=== PATIENT | female | born 1955 | race Caucasian/White ===

== ENCOUNTER 2017-04-10 17:11 | Emergency (ER) | payer BC ==
[~2017-04-10] VITALS: Ht 157.5 cm; Wt 67.7 kg
[~2017-04-10 17:11] MED LIST: ALBUTEROL SUL0.083 % IN; ALBUTEROL0.083 % IN; ALBUTEROL0.5 % IN; ALLEGRA-D 1212 HOUR PO; ALLEGRA-D 2424 HOUR PO; AMLODIPINE5 MG PO; ASPIRIN ADULT L81 M2; ATENOLOL100 MG PO; ATENOLOL25 MG PO; ATENOLOL50 MG PO; AUGMENTIN500TAB PO; AUGMENTIN875TAB PO; BRILINTA90 MG PO; CEPHALEXIN500 MG PO; CIPRO250 MG PO; CIPRO500 MG OR; EC-NAPROSYN500 MG PO; FENTANYL25 MCG/HR TD; FLONASE NASAL50 MCG; FLOVENT 44 MCG44 MCG IN; FLUARIX QUADRIV1 IN1 IM; FLUARIX QUADRIV1 INJ IM; FOSAMAX70 MG PO; HYDRALAZINE25 MG PO; LEVAQUIN750 MG PO; LIPITOR10 MG PO; LISINOPRIL10 MG PO; LORTAB 1010 MG PO; LORTAB 5 OR; LORTAB 5 PO; LORTAB 7.57.5 MG PO; MEDDOSEPAK PO; MIRAPEX0.5 MG PO; NITRO-DUR0.4 MG/HR TD; OXYGEN IN; PERCOCET 5/325M1 TAB PO; PLAVIX75 MG PO; PREDNISONE10 MG OR; PREDNISONE10 MG PO; PREDNISONE20 MG PO; PROTONIX40 M2 PO; PROVENTIL HFA INH; ROBITUSSIN AC10 ML PO; RYTHMOL150 MG OR; SINGULAIR PO; SINGULAIR10 MG OR; SINGULAIR10 MG PO; SOMA350 MG OR; SOMA350 MG PO; SYMBICORT1 AE1 IN; TENORMIN OR; TIZANIDINE2 MG PO; VENTOLIN HFA IN; VENTOLIN HFA INH; XANAX0.5 MG OR; XANAX0.5 MG PO; ZITHROMAX250 MG PO; ZPAK PO
[2017-04-10] MEDS ORDERED: ZYRTEC10 M5 PO (17:31)
[2017-04-10] MEDS ORDERED: BRILINTA90 MG PO (17:32)
[2017-04-10] MEDS ORDERED: PREDNISONE10 MG PO (17:33)
[2017-04-10 18:11] LABS: HEMOGLOBIN 11.7 g/dl (12.0-16.0); IMMATURE GRANULOCYTES 0.4 % (0.0-1.0); MEAN CELL VOLUME 86.6 fL CALC (80.0-100.0); MEAN CORPUSCULAR HGB 26.7 pG CALC (26.0-32.0); MEAN CORPUSCULAR HGB CONC 30.8 g/L CALC (32.0-36.0); NEUT# 6.55 thou/uL (2.00-7.15); RED BLOOD COUNT 4.39 mill/uL (4.20-5.60); RED CELL DISTRI WIDTH 12.9 % (11.5-15.5)
[2017-04-10 18:34] LABS: ALBUMIN 3.8 g/dL (3.2-5.0); ALKALINE PHOSPHATASE 87 u/l (38-126); ANION GAP 14 (6-22 (CALC)); BILIRUBIN, TOTAL 0.3 mg/dL (0.0-1.4); BUN 11 mg/dL (8-23); BUN/CREATININE RATIO 19 (12-20 (CALC)); CALCIUM 9.4 mg/dL (8.4-10.2); CARBON DIOXIDE 34 mmol/l (22-30); CHLORIDE 95 mmol/l (95-108); CREATININE 0.6 mg/dL (0.5-1.0); GFR > 60 ML/MIN (>=60 (CALC)); GFR FOR AFR.AMER. > 60 ML/MIN (>=60 (CALC)); GLUCOSE 128 mg/dL (82-115); POTASSIUM 3.2 mmol/l (3.5-5.1); SGOT/AST 19 u/l (9-36); SGPT/ALT 22 u/l (11-66); SODIUM 140 mmol/l (137-146); TOTAL PROTEIN 7.8 g/dL (6.3-8.2)
[2017-04-10 18:53] LABS: MYOGLOBIN 37 ng/mL (0 - 62)
[2017-04-10] MEDS ORDERED: ZPAK PO (19:21)
[2017-04-10] MEDS ORDERED: MEDDOSEPAK PO (19:21)
[2017-04-10 19:29] LABS: INFLUENZA A NONE DETECTED (NONE DETECT); INFLUENZA B NONE DETECTED (NONE DETECT)
[2017-04-10 19:55] VITALS: BP 173/82
== END 2017-04-10 19:56 | disposition home or self-care (01) | DRG 192 ==
LOC: ED 17:11
PROVIDERS: Emergency Medicine
DX: J44.1 Chronic obstructive pulmonary disease with (acute) exacerbation (principal); R06.02 Shortness of breath; R05 Cough

== ENCOUNTER 2017-05-19 11:10 | Observation (INO) | payer BC ==
[~2017-05-19] VITALS: Ht 157.5 cm; Wt 65.0 kg
[~2017-05-19 11:10] MED LIST changes: +ZYRTEC10 M5 PO
[2017-05-19 12:00] VITALS: BP 190/84
[2017-05-19 12:34] LABS: HEMATOCRIT 36.5 % (37.0-47.0); HEMOGLOBIN 11.1 g/dl (12.0-16.0); IMMATURE GRANULOCYTES 0.3 % (0.0-1.0); MEAN CELL VOLUME 84.7 fL CALC (80.0-100.0); MEAN CORPUSCULAR HGB 25.8 pG CALC (26.0-32.0); MEAN CORPUSCULAR HGB CONC 30.4 g/L CALC (32.0-36.0); NEUT# 7.62 thou/uL (2.00-7.15); RED BLOOD COUNT 4.31 mill/uL (4.20-5.60); RED CELL DISTRI WIDTH 14.1 % (11.5-15.5)
[2017-05-19 12:48] LABS: ALBUMIN 3.9 g/dL (3.2-5.0); ALKALINE PHOSPHATASE 64 u/l (38-126); ANION GAP 13 (6-22 (CALC)); BILIRUBIN, TOTAL 0.3 mg/dL (0.0-1.4); BUN 13 mg/dL (8-23); BUN/CREATININE RATIO 13 (12-20 (CALC)); CALCIUM 9.2 mg/dL (8.4-10.2); CARBON DIOXIDE 34 mmol/l (22-30); CHLORIDE 99 mmol/l (95-108); GFR 56 ML/MIN (>=60 (CALC)); GFR FOR AFR.AMER. > 60 ML/MIN (>=60 (CALC)); GLUCOSE 112 mg/dL (82-115); POTASSIUM 4.4 mmol/l (3.5-5.1); SGOT/AST 14 u/l (9-36); SGPT/ALT 20 u/l (11-66); SODIUM 141 mmol/l (137-146)
[2017-05-19 13:27] VITALS: BP 152/87
[2017-05-19 15:21] LABS: CHOLESTEROL HDL RATIO 3.6 (<4.4 (CALC))
[2017-05-19 20:00] VITALS: BP 155/89
[2017-05-20] VITALS (8 sets, daily range): BP systolic 110–156; BP diastolic 59–88
[2017-05-20 06:18] LABS: HEMATOCRIT 36.1 % (37.0-47.0); HEMOGLOBIN 10.9 g/dl (12.0-16.0); IMMATURE GRANULOCYTES 0.2 % (0.0-1.0); MEAN CELL VOLUME 86.4 fL CALC (80.0-100.0); MEAN CORPUSCULAR HGB 26.1 pG CALC (26.0-32.0); MEAN CORPUSCULAR HGB CONC 30.2 g/L CALC (32.0-36.0); NEUT# 5.78 thou/uL (2.00-7.15); RED BLOOD COUNT 4.18 mill/uL (4.20-5.60); RED CELL DISTRI WIDTH 14.1 % (11.5-15.5)
[2017-05-20 06:32] LABS: ALKALINE PHOSPHATASE 63 u/l (38-126); ANION GAP 15 (6-22 (CALC)); BILIRUBIN, TOTAL 0.3 mg/dL (0.0-1.4); BUN 15 mg/dL (8-23); BUN/CREATININE RATIO 17 (12-20 (CALC)); CALCIUM 9.1 mg/dL (8.4-10.2); CARBON DIOXIDE 30 mmol/l (22-30); CHLORIDE 99 mmol/l (95-108); CREATININE 0.9 mg/dL (0.5-1.0); GFR > 60 ML/MIN (>=60 (CALC)); GFR FOR AFR.AMER. > 60 ML/MIN (>=60 (CALC)); GLUCOSE 92 mg/dL (82-115); POTASSIUM 4.1 mmol/l (3.5-5.1); SGOT/AST 14 u/l (9-36); SGPT/ALT 22 u/l (11-66); SODIUM 141 mmol/l (137-146)
[2017-05-21] VITALS (8 sets, daily range): BP systolic 110–170; BP diastolic 55–81
[2017-05-21 05:28] LABS: HEMATOCRIT 35.1 % (37.0-47.0); HEMOGLOBIN 10.6 g/dl (12.0-16.0); IMMATURE GRANULOCYTES 0.1 % (0.0-1.0); MEAN CELL VOLUME 85.8 fL CALC (80.0-100.0); MEAN CORPUSCULAR HGB 25.9 pG CALC (26.0-32.0); MEAN CORPUSCULAR HGB CONC 30.2 g/L CALC (32.0-36.0); NEUT# 5.01 thou/uL (2.00-7.15); RED BLOOD COUNT 4.09 mill/uL (4.20-5.60)
[2017-05-21 05:59] LABS: ALBUMIN 3.3 g/dL (3.2-5.0); ALKALINE PHOSPHATASE 53 u/l (38-126); ANION GAP 13 (6-22 (CALC)); BILIRUBIN, TOTAL 0.2 mg/dL (0.0-1.4); BUN 11 mg/dL (8-23); BUN/CREATININE RATIO 16 (12-20 (CALC)); CALCIUM 8.7 mg/dL (8.4-10.2); CARBON DIOXIDE 28 mmol/l (22-30); CHLORIDE 103 mmol/l (95-108); CREATININE 0.7 mg/dL (0.5-1.0); GFR > 60 ML/MIN (>=60 (CALC)); GFR FOR AFR.AMER. > 60 ML/MIN (>=60 (CALC)); GLUCOSE 84 mg/dL (82-115); POTASSIUM 4.1 mmol/l (3.5-5.1); SGOT/AST 13 u/l (9-36); SGPT/ALT 20 u/l (11-66); SODIUM 140 mmol/l (137-146); TOTAL PROTEIN 6.1 g/dL (6.3-8.2)
[2017-05-22 03:23] VITALS: BP 137/79
[2017-05-22 08:25] VITALS: BP 159/68
[2017-05-22 09:44] VITALS: BP 159/68
== END 2017-05-22 09:47 | disposition home or self-care (01) | DRG 543 ==
LOC: ENPENDDIS → ICU 11:10 → MS2 05-21 13:05
PROVIDERS: ADMIT Internal Medicine Geriatric Medicine; ATTEND Internal Medicine Geriatric Medicine
DX: M48.54XA Collapsed vertebra, not elsewhere classified, thoracic region, initial encounter for fracture (principal); J44.1 Chronic obstructive pulmonary disease with (acute) exacerbation; I10 Essential (primary) hypertension; I25.10 Atherosclerotic heart disease of native coronary artery without angina pectoris; K21.9 Gastro-esophageal reflux disease without esophagitis; D64.9 Anemia, unspecified; M47.9 Spondylosis, unspecified; M62.830 Muscle spasm of back; Z95.5 Presence of coronary angioplasty implant and graft
CPT/HCPCS: A9503; G0378; G0379

== ENCOUNTER → 2019-01-19 | Outpatient (REF) | payer MEDICARE ==
[2019-01-19 08:55] LABS: HEMATOCRIT 40.6 % (37.0-47.0); HEMOGLOBIN 11.9 g/dl (12.0-16.0); IMMATURE GRANULOCYTES 0.1 % (0.0-5.0); MEAN CORPUSCULAR HGB 26.7 pG CALC (26.0-32.0); MEAN CORPUSCULAR HGB CONC 29.3 g/L CALC (32.0-36.0); NEUT# 5.15 thou/uL (2.00-7.15); RED BLOOD COUNT 4.46 mill/uL (4.20-5.60); RED CELL DISTRI WIDTH 14.3 % (11.5-15.5)
[2019-01-19 09:22] LABS: ALBUMIN 3.9 g/dL (3.2-5.0); ALKALINE PHOSPHATASE 62 u/l (38-126); ANION GAP 12 (6-22 (CALC)); BILIRUBIN, TOTAL 0.4 mg/dL (0.0-1.4); BUN 15 mg/dL (8-23); BUN/CREATININE RATIO 20 (12-20 (CALC)); CARBON DIOXIDE 36 mmol/l (22-30); CHLORIDE 97 mmol/l (95-108); CREATININE 0.7 mg/dL (0.5-1.0); GFR > 60 ML/MIN (>=60 (CALC)); GFR FOR AFR.AMER. > 60 ML/MIN (>=60 (CALC)); POTASSIUM 4.2 mmol/l (3.5-5.1); SGOT/AST 14 u/l (9-36); SODIUM 141 mmol/l (137-146); TOTAL PROTEIN 6.7 g/dL (6.3-8.2)
== END | disposition home or self-care (01) ==
LOC: LAB 08:29
PROVIDERS: ATTEND Internal Medicine Geriatric Medicine
DX: I10 Essential (primary) hypertension (principal)

== ENCOUNTER 2019-03-11 20:41 | Emergency (ER) | payer MEDICARE ==
[~2019-03-11] VITALS: Ht 157.5 cm; Wt 54.0 kg
[2019-03-11] MEDS ORDERED: LISINOPRIL20 M1 PO (21:17)
[2019-03-11] MEDS ORDERED: [UNRECOGNIZED DRUG - OTHER] PO (21:18)
[2019-03-11 21:20] LABS: HEMATOCRIT 39.9 % (37.0-47.0); HEMOGLOBIN 12.1 g/dl (12.0-16.0); IMMATURE GRANULOCYTES 0.4 % (0.0-5.0); MEAN CELL VOLUME 89.1 fL CALC (80.0-100.0); MEAN CORPUSCULAR HGB CONC 30.3 g/L CALC (32.0-36.0); NEUT# 10.6 thou/uL (2.00-7.15); RED BLOOD COUNT 4.48 mill/uL (4.20-5.60); RED CELL DISTRI WIDTH 14.1 % (11.5-15.5)
[2019-03-11 21:21] LABS: URINE BLOOD DIPSTICK LARGE (NEGATIVE); URINE COLOR YELLOW; URINE GLUCOSE - DIPSTICK NEGATIVE (NEGATIVE); URINE KETONE TRACE mg/dL (NEGATIVE); URINE LEUK ESTERASE NEGATIVE (NEGATIVE); URINE NITRITE - DIPSTICK NEGATIVE (Negative); URINE PROTEIN - DIPSTICK 100 mg/dL (NEG-TRACE); URINE SPECIFIC GRAVITY >=1.030
[2019-03-11 21:23] LABS: URINE BILIRUBIN - DIPSTICK MODERATE (NEGATIVE)
[2019-03-11 21:27] LABS: BARBITURATES NEGATIVE (NEGATIVE); COCAINE NEGATIVE (NEGATIVE); METHADONE NEGATIVE (NEGATIVE); OXCYCODONE POSITIVE (NEGATIVE); TETRAHYDROCANNABIONOL NEGATIVE (NEGATIVE); TRICYLIC ANTIDEPRESSANTS NEGATIVE (NEGATIVE)
[2019-03-11 21:33] LABS: URINE RBC TNTC RBC/hpf (0-5); URINE SQUAMOUS EPITHELIAL CELL FEW EPI/hpf (0-FEW)
[2019-03-11 21:55] LABS: ALBUMIN 4.4 g/dL (3.2-5.0); ALKALINE PHOSPHATASE 75 u/l (38-126); ANION GAP 16 (6-22 (CALC)); BILIRUBIN, TOTAL 0.6 mg/dL (0.0-1.4); BUN 23 mg/dL (8-23); BUN/CREATININE RATIO 31 (12-20 (CALC)); CARBON DIOXIDE 29 mmol/l (22-30); CHLORIDE 100 mmol/l (95-108); CREATININE 0.7 mg/dL (0.5-1.0); ETHYL ALCOHOL 0 mg/dl (0-30); GFR > 60 ML/MIN (>=60 (CALC)); GFR FOR AFR.AMER. > 60 ML/MIN (>=60 (CALC)); POTASSIUM 4.1 mmol/l (3.5-5.1); SGOT/AST 24 u/l (9-36); SODIUM 141 mmol/l (137-146); TOTAL PROTEIN 7.4 g/dL (6.3-8.2)
[2019-03-12 00:10] LABS: TSH, 3RD GENERATION 0.55 uIU/mL (0.47 - 4.68)
[2019-03-12 01:19] VITALS: BP 129/64
== END 2019-03-12 01:17 | disposition short-term general hospital (02) ==
LOC: ED 20:41
PROVIDERS: Emergency Medicine
DX: F29 Unspecified psychosis not due to a substance or known physiological condition (principal); J44.9 Chronic obstructive pulmonary disease, unspecified; R41.82 Altered mental status, unspecified; R44.1 Visual hallucinations
CPT/HCPCS: J2060

== ENCOUNTER 2019-09-28 22:43 | Inpatient (IN) | payer MEDICARE ==
[~2019-09-28] VITALS: Ht 157.5 cm; Wt 51.3 kg
[~2019-09-28 22:43] MED LIST changes: +LISINOPRIL20 M1 PO; +[UNRECOGNIZED DRUG - OTHER] PO
[2019-09-28 23:16] LABS: HEMATOCRIT 41.5 % (37.0-47.0); HEMOGLOBIN 12.5 g/dl (12.0-16.0); IMMATURE GRANULOCYTES 0.3 % (0.0-5.0); MEAN CELL VOLUME 89.1 fL CALC (80.0-100.0); MEAN CORPUSCULAR HGB 26.8 pG CALC (26.0-32.0); MEAN CORPUSCULAR HGB CONC 30.1 g/L CALC (32.0-36.0); NEUT# 11.29 thou/uL (2.00-7.15); RED BLOOD COUNT 4.66 mill/uL (4.20-5.60); RED CELL DISTRI WIDTH 13.5 % (11.5-15.5)
[2019-09-28] MEDS ORDERED: TRELEGY ELLIPTA1 AER IN (23:24)
[2019-09-28] MEDS ORDERED: LORTAB 1010 MG PO (23:27)
[2019-09-28] MEDS ORDERED: PLAVIX75 MG PO (23:28)
[2019-09-28 23:33] LABS: ALKALINE PHOSPHATASE 87 u/l (38-126); ANION GAP 10 (6-22 (CALC)); BILIRUBIN, TOTAL 0.6 mg/dL (0.0-1.4); BUN 19 mg/dL (8-23); BUN/CREATININE RATIO 22 (12-20 (CALC)); CARBON DIOXIDE 31 mmol/l (22-30); CHLORIDE 101 mmol/l (95-108); CREATININE 0.9 mg/dL (0.5-1.0); ETHYL ALCOHOL 0 mg/dl (0-30); GFR > 60 ML/MIN (>=60 (CALC)); GFR FOR AFR.AMER. > 60 ML/MIN (>=60 (CALC)); POTASSIUM 3.1 mmol/l (3.5-5.1); SGOT/AST 23 u/l (9-36); SODIUM 139 mmol/l (137-146); TOTAL PROTEIN 7.2 g/dL (6.3-8.2)
[2019-09-29] VITALS (10 sets, daily range): BP systolic 107–163; BP diastolic 57–95
[2019-09-29 00:31] LABS: URINE BLOOD DIPSTICK MODERATE (NEGATIVE); URINE COLOR YELLOW; URINE GLUCOSE - DIPSTICK NEGATIVE (NEGATIVE); URINE KETONE TRACE mg/dL (NEGATIVE); URINE LEUK ESTERASE NEGATIVE (NEGATIVE); URINE NITRITE - DIPSTICK NEGATIVE (Negative); URINE PH 5.5 (4.5-8.0); URINE PROTEIN - DIPSTICK 30 mg/dL (NEG-TRACE); URINE SPECIFIC GRAVITY 1.025; URINE UROBILINOGEN - DIPSTICK 0.2 E.U./dL (0.2)
[2019-09-29 00:36] LABS: URINE BILIRUBIN - DIPSTICK SMALL (NEGATIVE)
[2019-09-29 00:37] LABS: BARBITURATES NEGATIVE (NEGATIVE); COCAINE NEGATIVE (NEGATIVE); METHADONE POSITIVE (NEGATIVE); OXCYCODONE POSITIVE (NEGATIVE); TETRAHYDROCANNABIONOL NEGATIVE (NEGATIVE); TRICYLIC ANTIDEPRESSANTS POSITIVE (NEGATIVE)
[2019-09-29 00:46] LABS: URINE SQUAMOUS EPITHELIAL CELL FEW EPI/hpf (0-FEW)
[2019-09-29 10:41] LABS: BUN 17 mg/dL (8-23); BUN/CREATININE RATIO 19 (12-20 (CALC)); CARBON DIOXIDE 33 mmol/l (22-30); CHLORIDE 105 mmol/l (95-108); CREATININE 0.9 mg/dL (0.5-1.0); GFR > 60 ML/MIN (>=60 (CALC)); GFR FOR AFR.AMER. > 60 ML/MIN (>=60 (CALC)); SODIUM 142 mmol/l (137-146)
[2019-09-29 10:42] LABS: ANION GAP 8 (6-22 (CALC)); POTASSIUM 4.4 mmol/l (3.5-5.1)
== END 2019-09-29 18:28 | disposition short-term general hospital (02) | DRG 885 ==
LOC: ED 22:43 → ED-I 22:57 → ED 22:57 → ED-I 23:24 → ED 09-29 00:50 → ICU 09-29 01:00
PROVIDERS: Family Medicine; ADMIT Internal Medicine; ATTEND Internal Medicine
DX: F29 Unspecified psychosis not due to a substance or known physiological condition (principal); J96.10 Chronic respiratory failure, unspecified whether with hypoxia or hypercapnia; J44.9 Chronic obstructive pulmonary disease, unspecified; Z87.891 Personal history of nicotine dependence; Z99.81 Dependence on supplemental oxygen; I25.10 Atherosclerotic heart disease of native coronary artery without angina pectoris; I10 Essential (primary) hypertension; G89.29 Other chronic pain; F41.9 Anxiety disorder, unspecified; I48.91 Unspecified atrial fibrillation; Z79.02 Long term (current) use of antithrombotics/antiplatelets; E78.5 Hyperlipidemia, unspecified; Z90.49 Acquired absence of other specified parts of digestive tract; Z90.710 Acquired absence of both cervix and uterus; Z88.8 Allergy status to other drugs, medicaments and biological substances
CPT/HCPCS: J1650; J2060